=== PATIENT | male | born 1975 | race Native Hawaiian/Other Pacific Islander ===

== ENCOUNTER 2020-11-30 14:32 | Emergency (ER) | payer OTHER ==
[~2020-11-30] VITALS: Ht 182.9 cm; Wt 98.9 kg
[2020-11-30 14:32] VITALS: TEMP 96.7
[2020-11-30] MEDS ORDERED: METF500T PO (15:03)
[2020-11-30] MEDS ORDERED: OMEP20CA PO (15:03)
[2020-11-30] MEDS ORDERED: TRILEPTAL150 MG PO (15:04)
[2020-11-30 15:25] VITALS: BP 123/85
== END 2020-11-30 15:25 ==
LOC: ED 14:32
PROC: 08QNXZZ Repair Right Upper Eyelid, External Approach (ICD-10-PCS; principal; 2020-11-30)
DX: S01.111A Laceration without foreign body of right eyelid and periocular area, initial encounter (principal); W21.07XA Struck by softball, initial encounter; Y92.89 Other specified places as the place of occurrence of the external cause
CPT/HCPCS: 99283